=== PATIENT | male | born 1955 | race African-American/Black ===

== ENCOUNTER 2022-01-31 21:14 | Inpatient (IN) | payer BC, OTHER ==
[~2022-01-31] VITALS: Ht 170.2 cm; Wt 77.1 kg
[2022-01-31] MEDS ORDERED: APIX2.5T PO (21:38)
[2022-01-31] MEDS ORDERED: FURO-151 PO (21:38)
[2022-01-31] MEDS ORDERED: DOCU100C36 PO (21:38)
--- NOTE | 2022-01-31 21:38 | NUR ---
Patient unable to recall all home medications at this time.
--- NOTE | 2022-01-31 22:02 | NUR ---
Dr Wynn at bedside, MSE in progress
[2022-01-31 22:10] LABS: MEAN CORPUSCULAR HEMOGLOBIN 14.7 uug (23.8-33.4)
[2022-01-31 22:25] LABS: ALANINE AMINOTRANSFERASE 16 U/L (16-63); ALKALINE PHOSPHATASE 151 U/L (50-136); ASPARTATE AMINOTRANSFERASE 12 U/L (15-37); BILIRUBIN,DIRECT 0.9 mg/dL (0.0-0.2); BILIRUBIN,TOTAL 1.3 mg/dL (0.2-1.0); CARBON DIOXIDE 34 mmol/L (21-32); CHLORIDE 104 mmol/L (98-107); GLUCOSE 92 mg/dL (74-106); POTASSIUM 3.9 mmol/L (3.5-5.1); TOTAL PROTEIN, SERUM 6.2 g/dL (6.4-8.2); UREA NITROGEN, BLOOD 16 mg/dL (7-18)
[2022-01-31] MEDS ORDERED: FUROSEMIDE 40 MG/4 ML VIAL ONE (22:30)
[2022-01-31] MEDS ORDERED: FUROSEMIDE 40 MG/4 ML VIAL IV ONE (22:30)
[2022-01-31 22:31] LABS: HEMATOCRIT 26.4 % (36.7-47.1); MEAN CORPUSCULAR VOLUME 54.4 fL (73.0-96.2); PLATELET COUNT (AUTO) 164 K/uL (152-348)
[2022-01-31 22:55] LABS: LIPASE 133 U/L (73-393)
--- NOTE | 2022-01-31 23:07 | NUR ---
Patient is able to walk to the restroom without assistance. NAD noted
--- NOTE | 2022-02-01 00:22 | NUR ---
spoke with [employer] - [employer]; updated about patient's status
[2022-02-01] MEDS ORDERED: MORPHINE SULFATE 4 MG/1 ML DISP.SYRIN ONE (02:29)
--- NOTE | 2022-02-01 04:00 | NUR ---
Admitted in Tele floor under the care of Nolberto BUFFING MACHINE OPERATOR, alert oriented, continent, with ascites, v pacing on the tele monitor, no complain of pain, patient short of breath on excretion, with multiple healing stage of puncture scar due to previous paracentesis, Patient stated that he had paracentitis two days ago, but he feel that he needs paracentesis again. cont to monitor..
--- NOTE | 2022-02-01 04:11 | NUR ---
Pt. admitted to TELE room 325 , under care of Nolberto STONECUTTER APPRENTICE HAND Belongs List completed Rashawn RN aware of patient's arrival
[2022-02-01 04:15] VITALS: BP 105/62
[2022-02-01 04:30] LABS: BASOPHILS % (MANUAL) 0 % (0-2); EOSINOPHILS % (MANUAL) 2 % (0-8); LYMPHOCYTES % (MANUAL) 25 % (20-40); MONOCYTES % (MANUAL) 11 % (2-10); NEUTROPHILS % (MANUAL) 62 % (42-75)
[2022-02-01] MEDS ORDERED: MAGNESIUM HYDROXIDE 30 ML LIQUID UDC PO PRN (04:45)
[2022-02-01] MEDS ORDERED: REMEDY ESSENTIAL ZINC PASTE 113 GM TP PRN (04:45)
[2022-02-01] MEDS ORDERED: ZOLPIDEM 5 MG TABLET PO PRN (04:45)
[2022-02-01] MEDS ORDERED: ACETAMINOPHEN 325 MG TABLET PO PRN (04:45)
[2022-02-01] MEDS ORDERED: ONDANSETRON 4 MG/2 ML VIAL IV PRN (04:45)
[2022-02-01 07:21] LABS: HEMATOCRIT 24.8 % (36.7-47.1); MEAN CORPUSCULAR HEMOGLOBIN 14.8 uug (23.8-33.4); PLATELET COUNT (AUTO) 143 K/uL (152-348)
[2022-02-01 07:35] LABS: BILIRUBIN,TOTAL 1.5 mg/dL (0.2-1.0); CREATININE 0.9 mg/dL (0.6-1.3); MAGNESIUM 1.7 mg/dL (1.8-2.4); PHOSPHOROUS 3.6 mg/dL (2.5-4.9); POTASSIUM 3.6 mmol/L (3.5-5.1); TOTAL PROTEIN, SERUM 5.9 g/dL (6.4-8.2)
[2022-02-01 08:00] VITALS: BP 102/66
[2022-02-01 08:44] LABS: THYROID STIMULATING HORMONE 0.453 mIU/mL (0.358-3.740)
[2022-02-01] MEDS ORDERED: POTASSIUM CHLORIDE 20 MEQ TAB.PRT.SR PO ONE (08:45)
[2022-02-01] MEDS ORDERED: POTASSIUM CHLORIDE 20 MEQ POWDER PACKET GT ONE (08:45)
[2022-02-01] MEDS ORDERED: SPIRONOLACTONE 50 MG TABLET PO SCH (09:00)
[2022-02-01] MEDS ORDERED: FUROSEMIDE 40 MG/4 ML VIAL IV SCH (09:00)
[2022-02-01] MEDS ORDERED: PANTOPRAZOLE SODIUM 40 MG VIAL IV SCH (09:00)
[2022-02-01] MEDS ORDERED: ASPIRIN 81 MG TAB.CHEW PO SCH (09:00)
--- NOTE | 2022-02-01 09:30 | NUR ---
Pt is a/.o x 4, no complaint of pain at this time. Critical hgb level of 6.7 reported, MD notified. Comfort measures provided, call light within reach, will continue to monitor.
[2022-02-01] MEDS: MAGNESIUM SULFATE/D5W 100 ML IV SCH ×2 (09:45→09:57)
[2022-02-01 10:46] VITALS: BP 104/69
[2022-02-01 11:51] LABS: EOSINOPHILS % (MANUAL) 8 % (0-8); LYMPHOCYTES % (MANUAL) 17 % (20-40); MONOCYTES % (MANUAL) 7 % (2-10); NEUTROPHILS % (MANUAL) 68 % (42-75)
[2022-02-01] MEDS ORDERED: PANT40TA49 PO (12:24)
[2022-02-01] MEDS ORDERED: MULT-24 PO (12:28)
[2022-02-01] MEDS ORDERED: MAGN400T26 PO (12:28)
--- NOTE | 2022-02-01 12:58 | NUR ---
Pt pulled out IV, 1 of 2 bags of Magnesium administered, bag 2 non admin for no IV access. Order changed to PO magnesium by pharmacy. Pt states that he wants to go home. notified. Pending blood transfusion.
[2022-02-01] MEDS ORDERED: MAGNESIUM OXIDE 400 MG TABLET PO ONE (13:00)
[2022-02-01 14:24] LABS: *OCCULT BLOOD STOOL POSITIVE (NEGATIVE)
[2022-02-01] MEDS ORDERED: FERR325T28 PO (14:54)
[2022-02-01] MEDS ORDERED: SPIR50TA PO (14:54)
--- NOTE | 2022-02-01 16:53 | NUR ---
Pt is discharged home, transportation set up with taxi voucher. Pt lives alone in [place]. Pt is a/o x 4, aware of risks of geetting discharged prior to completion of testing and care but medical reasons are chronic and he has follow up appointments with primary and cardiology. All discharge education provided, all medications explained and sent electronically to preferred pharmacy. IV and ID bands removed. NO signs of acute distress noted. Pt was wheeled to taxi.
[2022-02-02] MEDS ORDERED: PANTOPRAZOLE SODIUM 40 MG TABLET.DR PO SCH (07:00)
== END 2022-02-01 16:45 | disposition home or self-care (01) | DRG 291 ==
LOC: ER 21:14 → TELE3 02-01 03:20 → ER 02-01 04:14
PROVIDERS: ADMIT Internal Medicine; ATTEND Internal Medicine
DX: I11.0 Hypertensive heart disease with heart failure (principal); E43 Unspecified severe protein-calorie malnutrition; I50.23 Acute on chronic systolic (congestive) heart failure; R18.8 Other ascites; I42.0 Dilated cardiomyopathy; K74.60 Unspecified cirrhosis of liver; D64.9 Anemia, unspecified; I48.0 Paroxysmal atrial fibrillation; Z79.01 Long term (current) use of anticoagulants; Z95.810 Presence of automatic (implantable) cardiac defibrillator; Z20.822 Contact with and (suspected) exposure to COVID-19; I07.1 Rheumatic tricuspid insufficiency; Z68.26 Body mass index [BMI] 26.0-26.9, adult; R19.5 Other fecal abnormalities; F12.11 Cannabis abuse, in remission
CPT/HCPCS: 36415; 70030-TC; 71045; 76705; 83550; 83690; 83735; 84100; 84443; 84484; 85025; 85730; 93005; 93307; A4663; G0378; J1940; J2270; J3475